=== PATIENT | female | born 1990 | race Caucasian/White ===

== ENCOUNTER → 2018-10-27 | Outpatient (REF) ==
[~2018-10-27] MED LIST: DOXE50CA2 OR; KLON1TAB OR; SOMA350T OR; TRAZ50TA OR; VIT D 2000 PO
== END ==
LOC: M LAB REF 11:15
PROVIDERS: ATTEND Obstetrics & Gynecology
DX: Z00.00 Encounter for general adult medical examination without abnormal findings (principal)